=== PATIENT | female | born 1945 | race Caucasian/White ===

== ENCOUNTER 2018-02-03 10:14 | Inpatient (IN) ==
[2018-02-03] MEDS ORDERED: CeFAZolin Syr 2,000MG/20 ML 2,000 MG/20 ML SYRINGE IVPB ONE (10:49)
[2018-02-03] MEDS ORDERED: Plasma-Lyte A (PH 7.4) 1,000 ML IVC SCH (11:00)
--- NOTE | 2018-02-03 11:24 | Anesthesia Evaluation PreOp ---
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 HX Other Medical History: Denies Any Significant HX, Other (RA) Anesthesia History: No Prior Anesthetic Complications, Past Anesthesia (None) : No Alcohol Use: none Drug use: none Medications and Allergies HYDROcodone/Acet 7.5/325 mg [[place] 7.5-325 mg] 1 tab PO Q6H PRN 02/03/18 [ History] Meloxicam [Mobic] 15 mg PO DAILY 02/03/18 [History] 3 Allergy/AdvReac Type Severity Reaction Status Date / Time No Known Allergies Allergy Verified 02/03/18 10:50 - Meds/Allergy Pre-op Review Medications Reviewed: Yes Allergies Reviewed: Yes Beta Blockers on Current Med List: No Anesthesia Results - Labs hemacue 11.3 Anesthesia Exam O2 Sat Height 1.65 m Height 1.65 m Height 1.65 m Weight 63.503 kg Weight 63.503 kg Weight 63.503 kg O2 Sat by Pulse Oximetry 95 O2 Sat by Pulse Oximetry 95 Vital Signs Temp Pulse Resp BP Pulse Ox 98.1 F 81 18 161/91 95 02/03/18 10:41 02/03/18 10:41 02/03/18 10:41 02/03/18 10:41 02/03/18 10:41 NPO (# of Hours): > 8 hrs Pain Scale: 0 Pain Scale Used: Numeric (1 - 10) - HEENT Pupil (Motor): Pupils equal, EOMI Mallampati: II Teeth: Edentulous Denture Type: Upper: Complete, Lower: Complete Oral Opening: Greater than 3 - V[employer]UUM CLE[employer] MECH[employer]IC LOC: Oriented [employer] Motor: Normal RUE, Normal LUE, Normal RLE, Normal LLE, Normal Face [employer] Sensory: Normal: RUE, LUE, RLE, LLE, Face - Cardiac Rhythm: Regular Murmur: None JVD: No Carotid Bruit: No - Pulmonary Breath Sounds: bilateral Clear Respiratory Effort: Symmetrical Anesthesia Assess/Plan ASA Score: 2 Modified [place] Scale for Level of Consciousness: Cooperative, oriented, and tranquil Anesthetic Plan: General, Regional Autologous Blood: Yes Monitoring Plan: Standard Monitors Recovery Plan: PACU
[2018-02-03] MEDS ORDERED: *HR* Propofol 200 MG/20 ML VIAL IVP ONE (13:21)
[2018-02-03] MEDS ORDERED: *HR* Midazolam HCl 2 MG/2 ML VIAL ONE ×2 (13:21→13:23)
[2018-02-03] MEDS ORDERED: *HR* FentaNYL (PF) 100 MCG/2 ML VIAL ONE ×2 (13:23→15:45)
[2018-02-03] MEDS ORDERED: *HR* OxyCODONE Immed Rel 5 MG TABLET PO PRN ×2 (13:25→18:12)
[2018-02-03] MEDS ORDERED: Bupivacaine/Clonidine Syringe 1 EACH SYRINGE ONE ×2 (13:25)
[2018-02-03] MEDS ORDERED: *HR* Labetalol 20 MG/4 ML SYRINGE IVP PRN (13:25)
[2018-02-03] MEDS ORDERED: Lidocaine -MPF 2% 2 ML VIAL ONE (13:29)
[2018-02-03] MEDS ORDERED: Ondansetron 4 MG/2 ML VIAL ONE (13:29)
[2018-02-03] MEDS ORDERED: Dexamethasone 4 MG/ML VIAL ONE (13:29)
--- NOTE | 2018-02-03 13:41 | History & Physical Report ---
Date of Encounter: 02/03/18 Time of Encounter: 13:41 24 Hour HP Update - Instructions Instructions: If the History and Physical is less than 30 days old and was completed prior to A.M. admission and or procedure and has NOT been updated on calendar day of procedure please complete this update prior to performing procedure. - Update Patient reports changes in Medical Condition: No Changes in examination, assessment, or condition: No Changes in Medication: No Preop tests/diagnostics Reviewed: Yes Surgery Remains Indicated: Yes Consent for Planned Operative Procedure(s) Verified: Yes - Pre-Operative Checklist Preoperative Checklist Indicated: No Prophylactic Antibiotic Ordered: Yes Is VTE Prophylaxis Indicated?: Yes
--- NOTE | 2018-02-03 13:48 | Anesthesia Procedures ---
Date of Encounter: 02/03/18 Time of Encounter: 13:45 Procedures: Anesthesia - Nerve Block Procedure Date: 02/03/18 Time: 13:45 Allergies/Adv Reactions: NKDA Pre-op Diagnosis: right shoulder fracture Surgical Procedure: TSR, reverse ball Checklist: Correct Patient Identifier, Correct procedure, History checked Correct side: Right Blood Thinner: No Monitor Applied: EKG, Pulse Oximetry Supplemental Oxygen via Nasal Cannula (L/min): 2 Sedation: Versed (mg): 1 Sedation: Fentanyl (mcg): 50 Indication: Post Op Analgesia Pre-op Neuro Deficits: No Block Type: Supraclavicular Catheter placed: No Sterile Technique: Yes Ultrasound used: Yes Anatomy identified: Yes Visual spread of Local: Yes Neuro Stimulation: Yes Nerve Stimulator Range: 0.2 - 0.4 mA Blood on Needle Aspiration: No Smooth Injection of Local: Yes Pain with Injection of Local: Yes Prep: Chlorhexadine Needle: 22 x 50 mm Stimuplex Local: 0.25% Bupivicaine w/Clonidine 20 mcg/cc (30cc place supraclavicular area and 10cc superficial cervical)
--- NOTE | 2018-02-03 13:50 | Discharge Summary ---
Orders not resulted at time of discharge: Pending orders 02/03/18 US anesthesia pain block [US] Routine 02/03/18 12:15 POC Hemoglobin [POC] Stat 02/03/18 13:12 XR elbow complete RT [XR] Routine XR shoulder complete RT [XR] Routine Hemoglobin and Hematocrit [HEME] Routine Date of Encounter: 02/07/18 Time of Encounter: 06:48 - Discharge Diagnosis (1) Displaced fracture of olecranon process of right ulna with intra-articular extension Priority: Primary Status: Acute Qualifiers: Encounter type: subsequent encounter Fracture type: closed Fracture healing: with routine healing Qualified Code(s): S52.031D - Displaced fracture of olecranon process with intraarticular extension of right ulna, subsequent encounter for closed fracture with routine healing (2) Displaced fracture of proximal end of humerus Priority: Primary Status: Acute (3) Rheumatoid arthritis Priority: Secondary Status: Chronic Qualifiers: Rheumatoid arthritis location: unspecified site Rheumatoid factor presence : unspecified presence Qualified Code(s): M06.9 - Rheumatoid arthritis, unspecified (4) Acute blood loss anemia Priority: Primary Status: Acute (5) Nondisplaced fracture of left patella Priority: Primary Status: Acute Qualifiers: Encounter type: subsequent encounter Fracture type: closed Fracture morphology: longitudinal Fracture healing: with routine healing Qualified Code(s): S82.025D - Nondisplaced longitudinal fracture of left patella, subsequent encounter for closed fracture with routine healing (6) S/P ORIF (open reduction internal fixation) fracture Priority: Primary Status: Acute (7) Status post reverse total arthroplasty of right shoulder Priority: Primary Status: Acute - Hospital Course Hospital course: Ms. Manuel is a 72 year old female Status post open reduction internal fixation right olecranon status post right total shoulder replacement. The patient had an uneventful postoperative course. They received antibiotics and physical therapy and were discharged in stable condition. There will follow -up in the office in 2 weeks. - Time Spent with Patient Total time spent providing and/or coordinating discharge services: - Discharge Medications Home Medications: HYDROcodone/Acet 7.5/325 mg [[place] 7.5-325 mg] 1 tab PO Q6H PRN 02/03/18 [ History] Meloxicam [Mobic] 15 mg PO DAILY 02/03/18 [History] Allergies/Adverse Reactions: 3 Allergy/AdvReac Type Severity Reaction Status Date / Time No Known Allergies Allergy Verified 02/03/18 10:50 Primary care physician: PCP NONE - Patient Status Disposition: Transfer SNF Condition: Good Functional capacity at discharge: independent ambulation Overall status at discharge: patient is progressing back to baseline - Discharge Instructions Follow Up With: Susan Ramirez PAC [Physician Gardening Instructor] - 02/11/18 8:45 am NONE,PCP [Primary Care Provider] - Additional Instructions: Discharge Instructions: Total Shoulder Please call [facility] ([phone]), your Primary Care Physician, or report to the Emergency Room if you have any of the following symptoms: Nausea, vomiting, fever greater that 101.5, swelling, chest pain, shortness of breath, increased pain/redness/drainage/odor for your incision site, numbness/ tingling, or any other concerning symptoms. ACTIVITY: Always keep your arm in the sling. Do not raise your arm away from your body. Do not use your arm to help with getting in or out of bed. No weight bearing permitted. Only perform those exercises given to you by your therapist. MEDICATIONS: Upon discharge resume your home medications. Take all the medications as prescribed. Take a stool softener if taking narcotic pain medications. Stool softeners are only effective if you drink enough fluids. Drink 6-8 glass of water or fluids a day, unless this is not allowed for another health problem. Despite using stool softeners, if you haven't had a bowel movement in 3 days, please switch to a gentle laxative. Gentle laxatives are sold over the counter. You should have a bowel movement within 24 hours, if not call the office. You will be discharged from the hospital with a prescription for pain medication. You are encouraged to decrease the use of narcotic pain medication as tolerated. Should you require a refill, please call the office. [facility] prescribes narcotic pain medication for only 4-6 weeks after surgery. If you require pain medication beyond this time period, you may be referred to your Primary Care Physician or to the Pain Clinic for further evaluation. Plan ahead for refills on pain medication as many narcotics either need to be picked up at the office or mailed. It is best to call 48-72 hours in advance of needing a prescription refill so you don't run out of medication. To help control the post-operative pain, you may take NSAIDs (Aleve,Advil, Motrin, Ibuprofen, Naprosyn) or Tylenol as prescribed on the bottle in addition to the pain medication. WOUND CARE: Leave the dressing on for 7-10 days. You may change the dressing if it becomes saturated greater than 50%. Do not get the dressing wet at anytime. Wash your hands with antibacterial soap, rinse and dry prior to any wound care. If you have esthela the visiting nurse or rehab facility can remove the stapes 10-14 days after surgery and place steri-strips across the wound. Leave the steri-strips in place until they fall off on their own. You may let water from the shower run on top of the steri-strips. If you do not have a visiting nurse or rehab facility, you will need to return to the office at 10-14 days for the esthela to be removed. If you have itching or redness around the dressing call the office. FOLLOW-UP: Please follow up with your surgeon in the orthopedic clinic, as scheduled
[2018-02-03] MEDS ORDERED: *HR* PHENYLEPHRINE 1,000 MCG/10 ML SYRINGE IVP ONE (14:45)
[2018-02-03] MEDS ORDERED: Bupivacaine-MPF 0.25% 10 ML VIAL ONE (15:40)
--- NOTE | 2018-02-03 15:55 | Orthopedic Operative Note ---
Date of procedure: 02/03/18 Pre-op diagnosis: Displaced comminuted right olecranon displaced head split proximal humerus Post-op diagnosis: same Procedure: Procedure: Right open reduction internal fixation of olecranon, right Reverse total shoulder replacment, Estimated blood loss: 200 cc Hardware: Metal and polyethylene replacement Arthrex glenoid baseplate: Small , 2 4.5 screws. 1 6.5 screw, glenosphere: 39+4 , humeral stem: Revision 6 , poly insert: 3 constrained, 6 metal Procedural Notes: Patient with a displaced comminuted fracture olecranon with pulverized central fragment. Patient with head split displaced proximal humerus fracture right side Operative procedure: The patient was brought to the operating room and placed on the operating room table. After general anesthesia was administered the operative shoulder was examined. Findings were noted. The patient was placed in the modified beachchair position. All pressure points were padded appropriately. And the head was stabilized in the neutral position. The operative extremity was prepped and draped in the sterile surgical fashion. The patient received IV antibiotics prior to skin incision. Surgery began with the olecranon. A longitudinal incision was made over the olecranon incision made through skin subcutaneous case tissue hemostasis was obtained Bovie cautery using careful blunt dissection the fracture was identified and evacuated fracture hematoma. Patient has pulverized central fragment which was unsalvageable. The large distal fragment was incorporated into a whipstitch within the triceps tendon with 2 #2 FiberWire suture both exiting through the fracture. These were then passed through 2 bone tunnels in the olecranon the fracture was reduced and on direct inspection had good reduction. This was then secured with multiple alternating half hitches. The wound was irrigated deep tissues closed with #1 PDS suture superficially with 0 PDS suture skin was closed with Monocryl and skin esthela. Attention was then turned to the reverse shoulder. A standard deltopectoral approach was made to the operative shoulder. Incision was made to the skin and subcutaneous tissue,hemo stasis was obtained with Bovie cautery. Using careful blunt dissection the cephalic vein was identified and mobilized medially. The deltopectoral interval was developed and the clavipectoral fascia was incised. The subscap was released off the lesser tuberosity, patient had a large head split with its placement and depression. The head was removed. Patient had a large greater tuberosity fragment which was tagged with #5 FiberWire suture. Anterior and posterior Bankart retractors were placed to expose the glenoid. The glenoid guide was seated and the centering hole was made. It was reamed with the appropriate reamer. The Mall baseplate was seated and secured with (2 ) 4.5 screws and one 6.5 screw. The baseplate was irrigated and dried and the appropriate 39+4 sphere was seated and secured with the Wei taper. The Wei taper was tested and found to be secured. The humerus was redislocated and prepared with the diaphyseal reamers, followed by a broaching process up to the appropriate size 6 revision stem in 20 degrees of retro-version. Trial reduction found the shoulder to be relocatable. Trial components were removed and the real implant was seated and secured in 20 degrees of retroversion. Trial reduction revealed excellent motion and stability with a metal 6 and a 3 constrained trials were removed real implants was seated and secured. Shoulders reduced. The greater tuberosity was repaired to the component with the #5 FiberWire suture. The deep tissue was irrigated with pulse irrigation. The deltopectoral interval was closed with a running #1 PDS suture, subcutaneous tissue was irrigated and closed with 0 PDS suture, the skin was closed with esthela. The patient was placed in a sterile dressing, elbow brace and sling. The patient was then transferred to the recovery room in stable condition. Anesthesia: GETA Surgeon: John Calles Was there an farm assistant present: No Estimated blood loss (cc): 200 Condition: stable Disposition: PACU
[2018-02-03 16:53] LABS: Hematocrit 38.1 % (35.3-44.9)
[2018-02-03] MEDS: MORPHINE SUL Oral CONC 10 MG/0.5 ML ORAL.SYG SL PRN ×2 (17:03→17:13)
--- NOTE | 2018-02-03 17:42 | Anesthesia Evaluation Post Op ---
Date of Encounter: 02/03/18 Time of Encounter: 17:41 - Vital Signs Vital Signs: Last Vital Signs Temp 98.6 F 02/03/18 17:32 Pulse 76 02/03/18 17:32 Resp 16 02/03/18 17:32 BP 124/82 02/03/18 17:32 Pulse Ox 92 02/03/18 17:32 - Lungs Lungs: Clear Ascult./Percussion - Airway Airway: Non-obstructed - Cardiovascular Regular Rate - Mental Status Mental Status: Alert & Oriented, Answers Appropriately - Pain Pain Scale: 4 - Nausea Vomiting Nausea Vomiting: Not Present - Hydration Hydration: NPO - Discharge PostOp Status: Transfer Patient to floor
[2018-02-03] MEDS ORDERED: *HR* Enoxaparin 30 MG/0.3 ML SYRINGE SQ SCH (18:00)
[2018-02-03] MEDS ORDERED: Sennosides 8.6 MG TABLET PO PRN (18:12)
[2018-02-03] MEDS ORDERED: Temazepam 15 MG CAPSULE PO PRN (18:12)
[2018-02-03] MEDS ORDERED: Ondansetron 4 MG/2 ML VIAL IVP PRN (18:12)
[2018-02-03] MEDS ORDERED: Naloxone 0.4 MG/ML INJ IVP PRN (18:12)
[2018-02-03] MEDS ORDERED: MOM Conc 10 ML UD.LIQ PO PRN (18:12)
[2018-02-03] MEDS: Ringers Solution, Lactated 1,000 ML IVC SCH (20:24)
[2018-02-03] MEDS: *HR* OxyCODONE Immed Rel 5 MG TABLET PO PRN (20:29)
[2018-02-03] MEDS: CeFAZolin Premix DUPLEX 2,000 MG/50 ML BAG IVPB SCH (22:30)
[2018-02-04] MEDS: *HR* OxyCODONE Immed Rel 5 MG TABLET PO PRN ×3 (00:46→10:51)
[2018-02-04 06:00] LABS: Hematocrit 30.5 % (35.3-44.9)
[2018-02-04] MEDS: *HR* Enoxaparin 30 MG/0.3 ML SYRINGE SQ SCH ×2 (06:45→16:41)
[2018-02-04] MEDS: CeFAZolin Premix DUPLEX 2,000 MG/50 ML BAG IVPB SCH (06:46)
--- NOTE | 2018-02-04 07:54 | Physician Discharge Referral ---
Home Health/Hosp Referral Info Transfer to: Home Health Attending Provider: Dr. Calles - Diagnosis (1) Displaced fracture of olecranon process of right ulna with intra-articular extension Priority: Primary Status: Acute (2) Displaced fracture of proximal end of humerus Priority: Primary Status: Acute (3) S/P ORIF (open reduction internal fixation) fracture Priority: Primary Status: Acute (4) Status post reverse total arthroplasty of right shoulder Priority: Primary Status: Acute (5) Nondisplaced fracture of left patella Priority: Secondary Status: Acute (6) Rheumatoid arthritis Priority: Secondary Status: Chronic - Respiratory Orders Smoking Cessation: Smoking cessation has been advised. For more information, call the [place] Tobacco Quit Line at 1-853-MRRE-NOW. - Dressing/Wound Care Site: right shoulder, right elbow Type of Dressing/Treatments w/Frequency: Opsite placed. Keep dressing intact until first follow up appointment. If > 50% saturated, notify office, remove dressing and place appropriate dressing back in place. Leave Dina/Zipline intact. Opsite dressing is water resistant, not water-proof. OK to shower, but do not get dressing wet. - Diet/Nutrition Diet/Nutrition Orders: Regular - Activity Activity Orders: Up ad shefali, Ambulate, Chair - Services Needed Following services are medically necessary services: Nursing, Home Health Aide, Physical Therapy, Occupational Therapy Home Care Orders: NO SHOULDER OR ELBOW MOTION on right upper extremity. PT/OT for hand motion and ADL retraining ONLY. NWB to affected upper extremity. Follow Shoulder Precautions x 6 weeks. Stay in right upper extremity brace at all times - remove only for bathing - use precautions to avoid any elbow or shoulder motion during bathing. ICE extremity frequently throughout the day. Hinged knee brace to left knee for nondisplaced patella fracture. WBAT to left lower extremity. - Transfer Medications Home Medications: HYDROcodone/Acet 7.5/325 mg [[place] 7.5-325 mg] 1 tab PO Q6H PRN 02/03/18 [ History] Meloxicam [Mobic] 15 mg PO DAILY 02/03/18 [History] Allergies/Adverse Reactions: 3 Allergy/AdvReac Type Severity Reaction Status Date / Time No Known Allergies Allergy Verified 02/03/18 10:50 Certification: Further, I certify that my clinical findings support that this patient is homebound (i.e. absences from home require considerable and taxing effort and are for medical reasons or rastafari services or infrequently or short duration when for other reasons) because: Homebound Reason: Post-surgery restriction and or conditions limit ability to leave home Attestation: My signature below is to certify that this patient is under my care and that I, or nurse practitioner, or a physician public relations assistant working with me, has a face-to- face encounter with this patient.
--- NOTE | 2018-02-04 08:04 | Physician Discharge Referral ---
ExtendedCare Referral Info Transfer To: [facility] Provider in Charge: Dr Calles - Diagnosis (1) Displaced fracture of olecranon process of right ulna with intra-articular extension Priority: Primary Status: Acute (2) Displaced fracture of proximal end of humerus Priority: Primary Status: Acute (3) S/P ORIF (open reduction internal fixation) fracture Priority: Primary Status: Acute (4) Status post reverse total arthroplasty of right shoulder Priority: Primary Status: Acute (5) Nondisplaced fracture of left patella Priority: Secondary Status: Acute (6) Rheumatoid arthritis Priority: Secondary Status: Chronic Expected Duration of Placement: less than 30 days Prognosis: Good Aware of Diagnosis: Patient Aware of Prognosis: Patient - Transfer Medications Home Medications: HYDROcodone/Acet 7.5/325 mg [[place] 7.5-325 mg] 1 tab PO Q6H PRN 02/03/18 [ History] Meloxicam [Mobic] 15 mg PO DAILY 02/03/18 [History] Allergies/Adverse Reactions: 3 Allergy/AdvReac Type Severity Reaction Status Date / Time No Known Allergies Allergy Verified 02/03/18 10:50 - Respiratory Orders Smoking Cessation: Smoking cessation has been advised. For more information, call the [place] Tobacco Quit Line at 0-638-DVEO-NOW. - Ancillary Orders May use pressure relief devices daily prn, May go on CLIFF w/family/respon democrat w /meds at nurse discretion PRN, May consult with Dentist, Knowledge Analyst, Supervisor [employer] PRN - Mobility Orders Chair, Ambulate - Rehabiliation Orders Rehab Potential: Good Rehab Orders: Evaluation for Physical Therapy, Evaluation for Occupational Therapy Other: NO SHOULDER OR ELBOW MOTION on right upper extremity. PT/OT for hand motion and ADL retraining ONLY. NWB to affected upper extremity. Follow Shoulder Precautions x 6 weeks. Stay in right upper extremity brace at all times - remove only for bathing - use precautions to avoid any elbow or shoulder motion during bathing. ICE extremity frequently throughout the day. Hinged knee brace to left knee for nondisplaced patella fracture. WBAT to left lower extremity. - Treatments Skin tear care topically daily PRN per policy List/Other: Opsite placed. Keep dressing intact until first follow up appointment. If > 50% saturated, notify office, remove dressing and place appropriate dressing back in place. Leave Dina/Zipline intact. Opsite dressing is water resistant, not water-proof. OK to shower, but do not get dressing wet. - Diet Orders Regular CERTIFICATION: I certify that the transfer of the above named patient to an Extended Care Facility is necessary for the continuing treatment of the diagnosis listed. The above information is true and accurate reflection of patient's current condition. Confidential - Redisclosure prohibited without a patient's written consent.
--- NOTE | 2018-02-04 08:34 | Orthopedics Progress Note ---
Date of Encounter: 02/04/18 Time of Encounter: 08:33 - Assessment and Plan (1) Displaced fracture of olecranon process of right ulna with intra-articular extension Current Visit: Yes Status: Acute Qualifiers: Encounter type: subsequent encounter Fracture type: closed Fracture healing: with routine healing Qualified Code(s): S52.031D - Displaced fracture of olecranon process with intraarticular extension of right ulna, subsequent encounter for closed fracture with routine healing (2) Displaced fracture of proximal end of humerus Current Visit: Yes Status: Acute (3) Rheumatoid arthritis Current Visit: Yes Status: Chronic Qualifiers: Rheumatoid arthritis location: unspecified site Rheumatoid factor presence : unspecified presence Qualified Code(s): M06.9 - Rheumatoid arthritis, unspecified Subjective Interval history: Patient was seen this morning doing well without complaints. Afebrile vital signs stable. Operative extremity: Neurovascularly still under the effects of the nerve block. Dressing clean dry and intact Calves nontender Assessment and plan: Continue with postoperative care hematocrit 30 Objective Vital signs: Vital Signs Temp Pulse Resp BP Pulse Ox 02/04/18 06:48 98.4 F 83 16 123/67 94 02/04/18 04:07 98.7 F 78 17 118/69 92 02/03/18 23:43 97.9 F 85 17 132/74 92 02/03/18 18:57 98.8 F 93 17 130/80 94 02/03/18 17:42 77 16 132/80 93 02/03/18 17:32 98.6 F 76 16 124/82 92 02/03/18 17:22 76 16 150/82 93 02/03/18 17:12 76 16 143/82 92 02/03/18 17:02 97.7 F 80 16 145/89 93 02/03/18 16:52 79 16 155/81 93 02/03/18 16:42 80 16 145/93 92 02/03/18 16:32 97.9 F 76 16 134/86 93 02/03/18 16:22 76 16 143/89 92 02/03/18 16:12 74 16 143/90 93 02/03/18 16:02 97.0 F L 73 16 127/74 96 02/03/18 13:45 85 16 145/93 95 02/03/18 13:20 89 16 173/99 95 02/03/18 11:12 98.1 F 81 18 161/91 95 02/03/18 10:41 98.1 F 81 18 161/91 95 Intake and Output 02/03/18 02/04/18 02/04/18 23:59 07:59 15:59 Intake Total 50 / 50 500 / 500 Output Total 0 / 0 450 / 450 Balance 50 / 50 50 / 50 Intake: IV Fluids 50 / 50 Ancef Premix DUPLEX 2,000 mg In 50 / 50 50 ml @ 100 mls/hr IVPB Q8H [facility] Rx#:[id number] Oral 500 / 500 Output: Urine 0 / 0 450 / 450 Other: Weight 81.8 kg Patient Weight 02/04/18 23:59 Weight 81.8 kg - Labs CBC & BMP: 02/04/18 05:36 Labs: Abnormal lab results Hgb 10.0 g/dL (11.5-15.4) L D 02/04/18 05:36 Hct 30.5 % (35.3-44.9) L 02/04/18 05:36 - VTE Documentation of Mechanical Device: Venous foot pump, device Consult Discharge Plan - Plan Referrals: NONE,PCP [Primary Care Provider] -
[2018-02-04] MEDS ORDERED: Acetaminophen IV 1,000 MG/100 ML INFUS..BTL IVPB PRN (11:54)
--- NOTE | 2018-02-04 16:24 | Event Note ---
Date of Encounter: 02/04/18 Time of Encounter: 12:00 PCR- POD#1 Right open reduction internal fixation of olecranon, right Reverse total shoulder replacement 02/03/18 Stevan --- Nondisplaced left patella fracture PCR - Patient seen at bedside. Patient's daughter and son-in-law present at bedside Pain control: Adequate Participating in PT. All questions and concerns addressed. Educated on use of incentive spirometer, ambulation, and hydration. Patient educated on post-operative restrictions and care. Addressed: NO SHOULDER OR ELBOW MOTION. PATIENT TO REMAIN IN ELBOW ROM BRACE LOCKED AT 100 DEGREES EXTENSION WITH SLING STRAP TO PROVIDE SHOULDER IMMOBILIZATION. PT/OT to work on hand motion and ADL retraining. WBAT on LLE with brace in place during flexion or activity. D/C plan: HH vs ECF -- continuities placed - family desiring patient to go to ECF as she has been essentially nonambulatory for the past week since falling. Requiring significant assistance for basic ADLs and family concerned about being able to aide patient as necessary.
[2018-02-04] MEDS: Ibuprofen 400 MG TABLET PO PRN (16:40)
[2018-02-04] MEDS: *HR* HYDROcodone/Acet 7.5/325 mg TABLET PO PRN (21:43)
[2018-02-05 01:54] LABS: Hematocrit 29.5 % (35.3-44.9); Hemoglobin 9.6 g/dL (11.5-15.4)
[2018-02-05] MEDS: *HR* HYDROcodone/Acet 7.5/325 mg TABLET PO PRN ×3 (03:32→16:06)
[2018-02-05] MEDS: *HR* Enoxaparin 30 MG/0.3 ML SYRINGE SQ SCH ×2 (06:37→18:03)
[2018-02-05] MEDS: Ringers Solution, Lactated 1,000 ML IVC SCH (06:55)
--- NOTE | 2018-02-05 12:24 | Orthopedics Progress Note ---
Date of Encounter: 02/05/18 Time of Encounter: 12:21 Subjective Interval history: No acute events overnight. Right shoulder and elbow pain controlled by oral pain control. Brace is in place and locked. 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 -No range of motion of the shoulder elbow -Continue hand motion, ice to aid in swelling of RUE -Plan to d/c likely to ECF Objective Vital signs: Vital Signs Temp Pulse Resp BP Pulse Ox 02/05/18 10:41 98.7 F 81 15 149/77 93 02/05/18 06:38 98.7 F 78 15 130/76 93 02/05/18 05:12 99.9 F H 82 17 142/86 94 02/04/18 22:55 98.5 F 69 16 115/68 91 02/04/18 18:54 98.8 F 78 17 132/66 93 02/04/18 16:39 99.0 F 78 16 143/73 93 Intake and Output 02/04/18 02/05/18 02/05/18 23:59 07:59 15:59 Intake Total 400 / 400 640 / 640 Output Total 350 / 350 400 / 400 Balance 50 / 50 240 / 240 Intake: Oral 400 / 400 640 / 640 Output: Urine 350 / 350 400 / 400 Other: Meal Breakfast Percent of Meal Consumed 50% # Voids 1 - Labs CBC & BMP: 02/05/18 01:32 Labs: Abnormal lab results Hgb 9.6 g/dL (11.5-15.4) L 02/05/18 01:32 Hct 29.5 % (35.3-44.9) L 02/05/18 01:32 - VTE Documentation of Mechanical Device: Venous foot pump, device Consult Discharge Plan - Plan Referrals: NONE,PCP [Primary Care Provider] -
[2018-02-05] MEDS: Ibuprofen 400 MG TABLET PO PRN (18:06)
[2018-02-06] MEDS: Ibuprofen 400 MG TABLET PO PRN (04:17)
[2018-02-06 06:33] VITALS: BP 162/93
[2018-02-06] MEDS: *HR* Enoxaparin 30 MG/0.3 ML SYRINGE SQ SCH (06:41)
--- NOTE | 2018-02-06 10:50 | Orthopedics Progress Note ---
Date of Encounter: 02/06/18 Time of Encounter: 10:48 Subjective Interval history: No acute events overnight. Right shoulder and elbow pain controlled by oral pain control. Brace is in place and locked. 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 -No range of motion of the shoulder elbow -Continue hand motion, ice to aid in swelling of RUE -Hydrocortisone cream for rash - per patient was present after initial sling placed prior to surgery -Plan to d/c to ECF today Objective Vital signs: Vital Signs Temp Pulse Resp BP Pulse Ox 02/06/18 06:30 98.9 F 78 14 162/93 93 02/06/18 00:22 99.7 F H 82 17 168/94 91 02/05/18 15:15 98.3 F 92 15 159/76 94 02/05/18 10:41 98.7 F 81 15 149/77 93 Intake and Output 02/05/18 02/06/18 02/06/18 22:59 07:59 15:59 Intake Total 240 / 240 Balance 240 / 240 Intake: Oral 240 / 240 Other: Meal Breakfast Percent of Meal Consumed 50% # Voids 1 - Labs CBC & BMP: 02/05/18 01:32 Labs: Abnormal lab results Hgb 9.6 g/dL (11.5-15.4) L 02/05/18 01:32 Hct 29.5 % (35.3-44.9) L 02/05/18 01:32 - VTE Documentation of Mechanical Device: Venous foot pump, device Consult Discharge Plan - Plan Additional Instructions: Discharge Instructions: Total Shoulder Please call [facility] ([phone]), your Primary Care Physician, or report to the Emergency Room if you have any of the following symptoms: Nausea, vomiting, fever greater that 101.5, swelling, chest pain, shortness of breath, increased pain/redness/drainage/odor for your incision site, numbness/ tingling, or any other concerning symptoms. ACTIVITY: Always keep your arm in the sling. Do not raise your arm away from your body. Do not use your arm to help with getting in or out of bed. No weight bearing permitted. Only perform those exercises given to you by your therapist. MEDICATIONS: Upon discharge resume your home medications. Take all the medications as prescribed. Take a stool softener if taking narcotic pain medications. Stool softeners are only effective if you drink enough fluids. Drink 6-8 glass of water or fluids a day, unless this is not allowed for another health problem. Despite using stool softeners, if you haven't had a bowel movement in 3 days, please switch to a gentle laxative. Gentle laxatives are sold over the counter. You should have a bowel movement within 24 hours, if not call the office. You will be discharged from the hospital with a prescription for pain medication. You are encouraged to decrease the use of narcotic pain medication as tolerated. Should you require a refill, please call the office. [facility] prescribes narcotic pain medication for only 4-6 weeks after surgery. If you require pain medication beyond this time period, you may be referred to your Primary Care Physician or to the Pain Clinic for further evaluation. Plan ahead for refills on pain medication as many narcotics either need to be picked up at the office or mailed. It is best to call 48-72 hours in advance of needing a prescription refill so you don't run out of medication. To help control the post-operative pain, you may take NSAIDs (Aleve,Advil, Motrin, Ibuprofen, Naprosyn) or Tylenol as prescribed on the bottle in addition to the pain medication. WOUND CARE: Leave the dressing on for 7-10 days. You may change the dressing if it becomes saturated greater than 50%. Do not get the dressing wet at anytime. Wash your hands with antibacterial soap, rinse and dry prior to any wound care. If you have esthela the visiting nurse or rehab facility can remove the stapes 10-14 days after surgery and place steri-strips across the wound. Leave the steri-strips in place until they fall off on their own. You may let water from the shower run on top of the steri-strips. If you do not have a visiting nurse or rehab facility, you will need to return to the office at 10-14 days for the esthela to be removed. If you have itching or redness around the dressing call the office. FOLLOW-UP: Please follow up with your surgeon in the orthopedic clinic, as scheduled Referrals: Susan Ramirez, PAC [Physician Site Supervising Technical Operator] - 02/11/18 8:45 am NONE,PCP [Primary Care Provider] -
[2018-02-06] MEDS: *HR* HYDROcodone/Acet 7.5/325 mg TABLET PO PRN (13:36)
== END 2018-02-06 14:50 | DRG 483 ==
LOC: SAMDAY 10:14 → 3NENU 18:13
PROVIDERS: ADMIT Orthopaedic Surgery; ATTEND Orthopaedic Surgery